=== PATIENT | male | born 2000 | race Two or more races ===

== ENCOUNTER 2024-05-24 17:30 | Emergency (ER) | payer MEDICAID, SELFPAY ==
[2024-05-24 17:32] VITALS: BMI 30.7
[2024-05-24 17:40] VITALS: BP 144/80; PULSE 79; RESP 20; TEMP 36.9; O2SAT 98
[2024-05-24 17:42] VITALS: BMI 31.2
--- NOTE | 2024-05-24 17:55 | EKG_ITS ---
[facility] Test Date: 2024-05-24 Pat Name: BRENDAN SUTTON Department: Room: - Gender: Male [employer] Software [employer]: : [id number] Requested By: Vivek Grimaldo Order Number: [id number] Reading MD: Vivek Grimaldo Measurements Intervals Grady Rate: 75 P: 54 CO: 168 QRS: 73 QRSD: 93 T: 43 QT: 354 QTc: 396 Interpretive Statements SINUS RHYTHM No previous ECG available for comparison /store/[email or web address]/[id number].pdf
--- NOTE | 2024-05-24 17:55 | XR_ITS ---
Examination: PA lateral chest 2 views Technique: Upright PA lateral chest 2 views Exam date and time: May 24, 2024 1818 hrs. Indications: Onset chest pain today. Findings: Minimal prominence left ventricle The lungs are clear. The osseous structures are intact Impression: No active disease
--- NOTE | 2024-05-24 18:04 | PD.EDBACK ---
ED Back Injury Pain RME/HPI General Chief Complaint: Back Pain/Injury Stated Complaint: back pain radiating to left chest x 1 week Time Seen by Provider: 05/24/24 17:46 Arrival date/time: 05/24/24 17:30 RME / HPI RME / HPI Narrative: 24-year-old male presents with complaints of thoracic back pain, which she states radiates around to the front of his chest. He describes a tingling sensation on the right side of his chest. Onset 1 week ago. Patient states it started after he sneezed. No fevers. No shortness of breath Related Data Previous Rx's ?Medication ?Instructions ?Recorded ibuprofen 600 mg tablet 600 mg PO Q6HR PRN PAIN #25 tabs 08/21/15 albuterol sulfate 90 mcg/actuation 2 puff inhalation QID #18 grams 10/19/19 aerosol inhaler Allergies Allergy/AdvReac Type Severity Reaction Status Date / Time No Known Allergies Allergy Verified 01/08/21 17:10 Review of Systems Review of Systems Systems Reviewed: All systems reviewed, normal except as documented Past Medical History Social History SMOKING STATUS: Never smoker Travel History EBOLA RISK: No ED Exam Narrative Physical exam: Constitutional: no acute distress, age appropriate, non-toxic Eyes: PERRL, conjunctivae w/o pallor, EOMI HENT: normocephalic, atraumatic. Oral mucosa moist Respiratory Effort: no stridor, effort normal, no retractions Breath sounds: Clear bilaterally; No rales, No rhonchi, No wheezing Cardiovascular: regular rhythm, S1 and S2 normal, no murmur Abdominal: soft; non-distended, non-tender Musculoskeletal: no deformities, no swelling, no LE edema Skin: warm, dry; No rash Neurology: alert, oriented X 4. Normal gait. Moves all extremities spontaneously. Psychology: cooperative, normal mood Course Quality Measures none Orders Category Date Time Status EKG (ED ONLY) *Do not use* NOW Care 05/24/24 17:55 Completed EKG (ED Only) Stat Exams 05/24/24 17:55 Draft XR chest 2V Stat Exams 05/24/24 17:55 Completed CBC Stat Lab 05/24/24 18:24 Completed CMP [Comprehensive Metabolic Panel] Stat Lab 05/24/24 18:24 Completed Troponin I Stat Lab 05/24/24 18:24 Completed Ibuprofen Tab [Motrin Tab] Med 05/24/24 17:55 Discontinued 600 mg PO X1 ONE Vital Signs Vital signs: Vital Signs Temperature 98.4 F 05/24/24 17:40 Pulse Rate 79 05/24/24 17:40 Respiratory Rate 20 05/24/24 17:40 Blood Pressure 144/80 H 05/24/24 17:40 Pulse Oximetry (%) 98 05/24/24 17:40 Oxygen Delivery Method Room Air 05/24/24 17:40 Back Pain / Injury MDM Narrative MDM Narrative:: Patient with history as above presented with chest pain and upper back pain. History obtained from patient. Patient was nontoxic, stable. Ambulatory. Exam as above. EKG reviewed. No ischemic changes Labs reviewed. Unremarkable, normal troponin Independently interpreted imaging. Chest x-ray without evidence of infiltrate, effusion, or pneumothorax. Reviewed external records. Differential diagnosis considered. Overall presentation is consistent with low risk chest pain. Low suspicion for ACS. Low risk by EDACS. Low suspicion for PE, low risk by clinical criteria. Low suspicion for pneumothorax, pneumonia, pericarditis, dissection, or other serious cause of chest pain. Patient was treated with pain medications with improvement in symptoms. Consideration was given for admission, but the patient was stable for outpatient management. Disposition: Discussed need to follow up diagnostics, including incidental findings. Discharged with instructions to obtain outpatient follow up of patient?s symptoms and findings, with strict return precautions if patient develops new or worsening symptoms. Patient data External records reviewed:: [facility] previous records Clinical information provided by:: patient Social determinants that could affect healthcare access:: none Patient has the following chronic illnesses:: None How is presenting disease/condition affected by chronic disease/condition?: no chronic disease Evaluation data The following diagnostics were reviewed and interpreted by me:: lab results, radiology exam(s) and EKG tracing(s) Lab and/or radiology exams considered but not ordered:: None Interpretation Summary: EKG medically necessary in the evaluation of chest pain and interpreted by me and ED physician at the time of patient evaluation. Normal sinus with a rate of 75. CT and QT intervals within normal limits. No ST/T changes. No STEMI. Interpretation: Normal EKG CBC shows no leukocytosis or anemia CMP shows no electrolyte abnormalities, no FÉLIX. LFTs less than 3x upper limit of normal Troponin within normal limits Examination: PA lateral chest 2 views Technique: Upright PA lateral chest 2 views Exam date and time: May 24, 2024 1818 hrs. Indications: Onset chest pain today. Findings: Minimal prominence left ventricle The lungs are clear. The osseous structures are intact Impression: No active disease Medications / Prescriptions Medications or Prescriptions considered but not ordered:: N/A Medication administrations:: Medication Administration History Discontinued Medications Ibuprofen (Ibuprofen Tab 600 Mg Tablet) 600 mg PO X1 ONE Stop: 05/24/24 17:56 Last Admin: 05/24/24 18:05 Dose: 600 mg Documented By: See above Consultations Consultation(s) initiated? (list below): No Diagnosis Differential diagnosis back pain/injury: lumbar radiculopathy, sciatica and strain of lumbar region Most likely diagnosis given after review of the tests above:: Thoracic back pain Admission Indicated Admission indicated?: not indicated Admission Request Was there a request for admission?: No Disposition Plan Disposition Plan: Discharge Discharge Attestation Discharge Attestation: The patient and all family members were given an opportunity to ask questions and understood the discharge instructions. Discharge instructions specifically effects, indications for sooner follow up or return to the emergency department, and the expected course of current diagnosis. Patient condition: Stable Discharge Plan Plan Patient Disposition: HOME (Self Care) Prescriptions/Referrals Prescriptions/Med Rec: No Action ibuprofen 600 MG tablet 600 mg PO Q6HR PRN (Reason: PAIN) Qty: 25 0RF albuterol sulfate 90 mcg/actuation HFA aerosol inhaler 2 puff IH QID Qty: 18 0RF Referrals: No Primary/Family,Physician [Primary Care Provider] - In 1 week Problem List Clinical Impression: Acute upper back pain Patient/Caregiver Discharge Instructions Education Materials: ED Back Pain (Acute or Chronic) Additional Instructions: Your x-ray was normal today. EKG and lab tests were also normal. Take OTC ibuprofen as needed for pain. Follow-up with primary care in 2 to 3 days for further evaluation and treatment of symptoms. Return to the ED at anytime for new or worsening symptoms. Print Language: Gabonese Stand Alone Forms: Ashley Award Info., Patient Portal Info Letter
[2024-05-24] MEDS: IBUPROFEN TAB 600 MG TABLET PO (18:05)
[2024-05-24 18:42] LABS: Basophils % (Auto) 0 % (0-2.5); Eosinophils # (Auto) 0.1 Thou/mm3 (0.0-0.5); Eosinophils % (Auto) 1 % (0-10); Hematocrit 43.9 % (41.0-53.0); Hemoglobin 14.9 g/dL (13.5-16.0); Immature Granulocytes % (Auto) 0 % (0-0); Immature Granulocytes Auto 0.03 Thou/mm3 (0.00-0.00); Lymphocytes # (Auto) 1.8 Thou/mm3 (1.0-4.8); Lymphocytes % (Auto) 17 % (10-50); Mean Corpuscular HGB Conc 33.9 g/dl (31.0-37.0); Mean Corpuscular Hemoglobin 30.6 pg (25.0-35.0); Mean Corpuscular Volume 90 fL (80-100); Monocytes # (Auto) 0.4 Thou/mm3 (0.0-0.8); Monocytes % (Auto) 4 % (0-12); Neutrophils # (Auto) 7.8 Thou/mm3 (1.8-7.7); Neutrophils % (Auto) 77 % (37-80); Nucleated Red Blood Cell % 0 /100 WBC (0); Platelet Count 264 Thou/mm3 (140-440); Red Blood Count 4.87 Miln/mm3 (4.50-5.90); White Blood Count 10.1 Thou/mm3 (3.8-10.6)
[2024-05-24 19:05] LABS: Alanine Aminotransferase 16 U/L (10-49); Albumin, Serum 4.9 gm/dL (3.5-5.0); Alkaline Phosphatase 76 U/L (46-116); Anion Gap 9 (7-16); Aspartate Amino Transferase 12 U/L (0-34); BUN/Creatinine Ratio 12 Ratio (12-20); Bilirubin,Total 0.6 mg/dL (0.3-1.2); Blood Urea Nitrogen 12 mg/dL (9-23); Calcium 9.7 mg/dL (8.3-10.6); Calcium (Corrected) 9.7 mg/dL (8.5-10.1); Carbon Dioxide 26.8 mMol/L (20.0-31.0); Chloride 104 mMol/L (98-107); Estimated Creatinine Clearance 114.3 mL/min (>60); Globulin 2.5 gm/dL (2.3-3.5); Glucose 159 mg/dL (74-106); Osmolality,Calculated 282 (275-295); Sodium 140 mMol/L (136-145); Total Protein 7.4 gm/dL (5.7-8.2); Troponin I < 0.020 ng/mL (0.0-0.045); eGFR > 60 See Note
[2024-05-24 20:21] VITALS: BP 128/77; PULSE 72; RESP 16; TEMP 37.4; O2SAT 98
== END 2024-05-24 20:29 | disposition home or self-care (01) ==
PROVIDERS: Physician Assistant; Emergency Provider Emergency Medicine
DX: M54.6 Pain in thoracic spine (principal); R07.9 Chest pain, unspecified
CPT/HCPCS: 36415; 71046; 80053; 84484; 85025; 93005; 99283; A9270